=== PATIENT | male | born 1960 | race Caucasian/White ===

== ENCOUNTER 2023-08-29 08:52 | Outpatient (REF) | payer MEDICARE, BC, SELFPAY ==
--- NOTE | ~2023-08-29 | XR_ITS ---
EXAMINATION: XR LUMBOSACRAL SPINE WITH OBLIQUES CLINICAL INFORMATION: Lumbar spine pain COMPARISON: None available. TECHNIQUE: AP, both oblique, and lateral views of the lumbar spine. Lateral view of the lumbosacral junction. FINDINGS: The visualized lumbar vertebrae are intact with normal alignment. Bilateral 12th ribs are rudimentary. There is sacralization of L5. Intervertebral disc spaces are markedly decreased at L3-L4, L4-L5 and L5-S1 level. Alignment of lumbar spine is normal in lateral flexion and extension views. A 0.7 cm calcification is seen overlapping the left lower renal region. XR/XR lumbar spine 4V min IMPRESSION: 1. Advanced L3-L4 and L4-L5 degenerative lumbar disc disease, decreased L5-S1 intervertebral disc height due to L5 sacralization are seen. 2. No fracture or dislocation of lumbar spine is seen. 3. Stable normal alignment of lumbar spine in flexion and extension is demonstrated. 4. Possible left lower renal region calcifications suggestive of calculus.
== END 2023-08-29 08:53 | disposition home or self-care (01) ==
LOC: HO.HOSX 08:52
PROVIDERS: PCP Internal Medicine; Referring Provider Internal Medicine; Visit Provider Physician Assistant
DX: M54.50 Low back pain, unspecified (principal); M54.2 Cervicalgia; G89.29 Other chronic pain; M48.56XA Collapsed vertebra, not elsewhere classified, lumbar region, initial encounter for fracture; M43.17 Spondylolisthesis, lumbosacral region
CPT/HCPCS: 72110; 99202

== ENCOUNTER 2023-08-29 08:52 | Outpatient (AMB) | payer MEDICARE, BC, SELFPAY ==
--- NOTE | 2023-08-29 09:05 | HO.SPINEOV ---
Intake Intake Visit Reasons: neck and back pain Intake Note: Mr. Mercado is here today c/o neck and back pain. MRI done @ [facility]/brought disc. Onion Farmer Required: No Assessment & Plan Assessment & Plan (1) Back pain: Code(s): M54.9 - Dorsalgia, unspecified Plan Dear Rosi, Thank you for referring Mr Archer to our office today. He is a 63-year-old male who had a previous history of an L4-5 and L5-S1 lumbar surgery done back in the 1980s, who presents today for chronic low back pain and chronic neck pain. He describes the symptoms as spasm like. They are worse when he standing up and moving around. The low back pain is centralized in the middle the low back over the lumbosacral junction more to the left radiating down toward his buttock. The neck pain is in the lower cervical region and to some degree in between his shoulder blades. He does not have any radicular pain in the legs or the arms. He has no weakness to report. He does get some tingling and alter sensation on the left dorsum of his foot. Through the years he has tried multiple rounds of hearing healthcare practitioner, physical therapy, cortisone injections. He did have a caudal block done a number of years ago and that did seem to give him relief. He also reports an SI joint block done a number of years ago with possibly radiofrequency ablation and that did seem to help as well. At this point his quality of life is suffering significantly. He can not perform any of the usual daily tasks that he would like to do such as yd work etc.. He has taken Soma, baclofen, Advil, Tylenol, Excedrin. He can not exercise. This is causing his diabetes numbers to be elevated. He reports that an A1c of 10 was registered at 1 point but now it is down to 7.9. He does not take medication for his diabetes. PMH: As above, he is a diabetic but foot some reason or another he refuses to take medication to treat it. His A1c is 7.9 at the last check. It was as high as 10 at 1 point. He had been treating with diet and exercise but he can not exercise as much now so his blood sugars are elevated. History of gout, appendectomy, lumbar spine surgery twice, hypertension. The patient also has a history of myelomalacia diagnosed on a cervical spine workup many years ago. He has been asymptomatic. Social hx: He does not smoke Medications: Allopurinol for gout Allergies: Penicillin Physical exam: He is awake alert oriented no acute distress, he has good strength of bilateral upper lower extremities, normal reflexes. Gait is normal. He is slow with standing. Imaging review: Cervical MRI done at [facility] 2020 shows myelomalacia along spinal cord anteriorly more on the left along the C4-C7 range. There is some modest spinal cord compression here but nothing overt that would explain the myelomalacia. He has a lumbar MRI done in July 2023 at [facility] showing transitional vertebrae with very collapsed disc at L4-5, slight retrolisthesis of L5-S1. There is no evidence of central canal compression or foraminal stenosis. Impression: 63-year-old gentleman presents for evaluation of chronic neck pain chronic back pain as described above. He does have a severely collapsed disc at L4-5 on the most recent MRI study. Compared to the imaging done in 2018 it does not look significantly worsened. Standing x-rays done here today in the office show the does have slight scoliosis with collapse of the disc at L4-5 worse on the left. There is also disc degeneration at L5-S1. These things may explain his symptoms. On exam he describes the pain as being much lower down in his sacrococcygeal area. I told him I could not guarantee with 100% that the disc collapses where the pain is coming from but that it certainly looks degenerative enough that I think Dr. Dennis would offer him spinal fusion at L4-5, and possibly even L5-S1. I quoted in the success rates for spinal fusion as 60-70%. We also talked about the fact that we could consider another SI joint injection to clarify if this is involved with the symptoms but he deferred this. He does not want to go back down that road. With regard to his neck, he does have the myelomalacia and that seems to be an incidental finding as he has no symptoms and no physical exam findings compatible with myelomalacia. He has previously been assessed for this by who also told him there was nothing to do for it. I will get a new MRI just to see if any of the disc degeneration is changed in his neck that we could consider something surgical there. Thank you for allowing us to care for your patient. The total time spent with this visit with this patient was 65 minutes reviewing history, physical exam, cervical and lumbar imaging review, and implementation of treatment plan or further diagnostic testing Anthony Dennis MD,PhD [facility] Orders: Orders XR lumbar spine 4V min Today M54.9 - Dorsalgia, unspecified MR cervical spine wo con Today M54.2 - Cervicalgia Coding Level of Care Code New Pt Level 5 (88559) Diagnoses Back pain M54.9
== END 2023-08-29 10:35 | disposition home or self-care (01) ==
PROVIDERS: PCP Internal Medicine; Referring Provider Internal Medicine; Visit Provider Physician Assistant
DX: M54.9 Dorsalgia, unspecified (principal)
CPT/HCPCS: 99205

== ENCOUNTER → 2023-09-16 14:31 | Outpatient (BNVA) | payer MEDICARE, BC, SELFPAY | PROVIDERS: PCP Internal Medicine; Visit Provider Neurological Surgery | DX: M51.36 Other intervertebral disc degeneration, lumbar region (principal); M41.56 Other secondary scoliosis, lumbar region; M54.9 Dorsalgia, unspecified | CPT/HCPCS: 99212 ==

== ENCOUNTER → 2023-11-24 13:05 | Outpatient (BNV) | payer MEDICARE, BC, SELFPAY | PROVIDERS: Admitting Provider Neurological Surgery; PCP Internal Medicine; Visit Provider Internal Medicine | DX: R00.1 Bradycardia, unspecified (principal); R94.31 Abnormal electrocardiogram [ECG] [EKG] | CPT/HCPCS: 93010 ==

== ENCOUNTER 2023-12-08 06:07 | Inpatient (IN) | payer MEDICARE, BC, SELFPAY ==
--- NOTE | 2023-11-24 | ECG_ITS ---
Test Reason : HTN, DM, PREOP Blood Pressure : / mmHG Vent. Rate : 058 BPM Atrial Rate : 058 BPM P-R Int : 162 ms QRS Dur : 090 ms QT Int : 418 ms P-R-T Axes : 070 004 116 degrees QTc Int : 410 ms Sinus bradycardia Possible Inferior infarct , age undetermined T wave abnormality, consider lateral ischemia Abnormal ECG No previous ECGs available Referred By: Huong Guillory Electronically Signed By:ANTOINETTE TATE
[2023-11-24 12:12] VITALS: BP 156/87; PULSE 70; RESP 16; O2SAT 100; BMI 28.8
--- NOTE | 2023-11-24 12:36 | P.CONAN_ITS ---
Documented by User: Huong Guillory NP 12/05/23 11:06 HPI - Anesthesia Eval Consult details Narrative: 63yo M for L4-5 Oblique Lumbar Interbody Fusion, 12/08/23 ? Flu ~ 2 weeks ago. Resolved. No CP/SOB with walking within house and stairx. Seen by [facility] 02/2023 for abnormal EKG. Had false positive stress - sent for cath and echo which were normal Asc aorta dilation @ 4.3cm by echo 02/2023 DM. FBS ~ 115 GERD. controlled with prn ppi. Taking ~ 2-3 x weekly PMFSH Active Problems Active Problems: All Active Problems (Updated 11/24/23 @ 12:27 by Marilu Watts RN) Lumbar degenerative disc disease (Acute) Scoliosis of lumbar region due to degenerative disease of spine in adult (Acute) Back pain (Acute) Past Medical History Medical History Anxiety Numbness and tingling of both feet Disc disease with myelopathy, lumbar Bilateral lower extremity pain Ascending aorta dilation Achilles tendinitis GERD (gastroesophageal reflux disease) IFG (impaired fasting glucose) Gout Elevated cholesterol HTN (hypertension) Diabetes Neck pain Arthritis Muscle spasm Migraines Family History Family history of problems with anesthesia: No Surgical History Surgical History Hx of appendectomy History of back surgery History of Problems with Anesthesia: No Social History Social History Are you a primary physician locums urgent care to a significant other at home: No Do you presently have visiting nurse or other home services: No Patient Tobacco Use Status: Never used Tobacco Use of substances other than those prescribed or required for medical reasons: No Have you been hit, kicked, punched, or otherwise hurt by someone within the past year? If so, by whom?: No Are you DNR?: No Advance Directives: No Advance Directives Information Provided: Yes Advance Directives on File: No Recently lost weight without trying: No Nutrition Risks: No Nutritional Risk Poor oral hygiene: No Meds Allergies Allergy/AdvReac Type Severity Reaction Status Date / Time Penicillins Allergy Unknown Swelling Verified 12/08/23 06:11 Home Medications Medication Instructions Recorded Confirmed Last Taken Type allopurinol 300 mg tablet 300 mg PO DAILY 11/21/23 12/08/23 Unknown History diazepam 5 mg tablet 5 mg PO DAILY PRN Anxiety 11/21/23 12/08/23 Unknown History empagliflozin 10 mg tablet 10 mg PO DAILY 11/21/23 12/08/23 12/03/23 History (Jardiance) acetaminophen 325 mg tablet 650 mg PO DAILY PRN Pain 11/24/23 12/08/23 Unknown History colchicine 0.6 mg tablet 0.6 mg PO DAILY PRN Pain 11/24/23 12/08/23 Unknown History ibuprofen 200 mg tablet (Advil) 400 mg PO Q8H PRN Pain 11/24/23 12/08/23 12/01/23 History omeprazole 20 mg capsule,delayed 20 mg PO QAM PRN Gastric Reflux 11/24/23 12/08/23 12/08/23 History release Exam Height,Weight and Vital Signs: Height 5 ft 10.5 in Weight 92.2 kg Last Vital Signs Pulse 70 11/24/23 12:12 Resp 16 11/24/23 12:12 BP 156/87 H 11/24/23 12:12 Pulse Ox 100 11/24/23 12:12 O2 Del Method Room Air 11/24/23 12:12 Pertinent Lab Results Pertinent Lab Results: Lab Results 11/24/23 11/24/23 Range/Units 13:07 13:13 WBC 4.2 L (4.8-10.8) X10*3/uL RBC 5.81 H (4.60-5.80) X10*6/uL Hgb 16.9 (14.0-18.0) g/dl Hct 51.2 (42.0-52.0) % MCV 88.1 (80.0-98.0) fL MCH 29.1 (27.0-33.0) pg MCHC 33.0 (31.0-36.0) g/dl RDW 12.3 (11.0-16.0) % Plt Count 173 (160-400) X10*3/uL MPV 10.0 (9.4-12.4) fL Absolute Nucleated RBC 0.000 (0.0-0.012) X10*3/uL Nucleated RBC % (auto) 0.0 (0.0-0.2) /100WBC Sodium 138 (135-145) mmol/L Potassium 4.5 (3.3-5.1) mmol/L Chloride 103 (96-108) mmol/L Carbon Dioxide 28 (22-29) mmol/L Anion Gap 12 (12-20) BUN 25 H (9-16) mg/dL Creatinine 1.10 (0.5-1.4) mg/dL Estim Creat Clear Calc 77.4 Estimated GFR > 60 Random Glucose 119 H (60-115) mg/dL Estimat Average Glucose 146 mg/dL Hemoglobin A1c % 6.7 H (<6.0) % Calcium 10.2 (8.4-10.2) mg/dL Blood Type O Positive Antibody Screen NEGATIVE Narrative Narrative: EKG 11/2023 Vent. Rate : 058 BPM Atrial Rate : 058 BPM P-R Int : 162 ms QRS Dur : 090 ms QT Int : 418 ms P-R-T Axes : 070 004 116 degrees QTc Int : 410 ms Sinus bradycardia Possible Inferior infarct , age undetermined T wave abnormality, consider lateral ischemia Abnormal ECG No previous ECGs available (No change from previous at outside facility) ECHO 02/2023 1. Nml LV chamber size. Mild conc LVH. Nml LV systolic function. Nml regional wall motion. LVEF 55-60% 2. RV is nml in size and systolic function 3. No hemodynamically signif valve dysfunction 4. Asc aorta dilation @ 4.3cm Airway Mallampati Class: II TM Dist: >3cm Neck ROM: Limited Loose/Missing/Broken Teeth: Yes (Molars pulled. #8 crowned) Heart: RRR Lungs: CTAB Assessment and Plan Assessment Anesthesia Assessment: Anesthesia Plan Discussed and PAT Visit Final Anesthetic Review Family History of Problems with Anesthesia: No History of Problems with Anesthesia: No Documented by User: Ton Cook MD 12/08/23 06:55 [facility] Past Medical History Medical History Anxiety Numbness and tingling of both feet Disc disease with myelopathy, lumbar Bilateral lower extremity pain Ascending aorta dilation Achilles tendinitis GERD (gastroesophageal reflux disease) IFG (impaired fasting glucose) Gout Elevated cholesterol HTN (hypertension) Diabetes Neck pain Arthritis Muscle spasm Migraines Surgical History Surgical History Hx of appendectomy History of back surgery Social History Social History Are you a primary physician locums urgent care to a significant other at home: No Do you presently have visiting nurse or other home services: No Patient Tobacco Use Status: Never used Tobacco Use of substances other than those prescribed or required for medical reasons: No Have you been hit, kicked, punched, or otherwise hurt by someone within the past year? If so, by whom?: No Are you DNR?: No Advance Directives: No Advance Directives Information Provided: Yes Advance Directives on File: No Recently lost weight without trying: No Nutrition Risks: No Nutritional Risk Poor oral hygiene: No Meds Allergies Allergy/AdvReac Type Severity Reaction Status Date / Time Penicillins Allergy Unknown Swelling Verified 12/08/23 06:11 Home Medications Medication Instructions Recorded Confirmed Last Taken Type allopurinol 300 mg tablet 300 mg PO DAILY 11/21/23 12/08/23 Unknown History diazepam 5 mg tablet 5 mg PO DAILY PRN Anxiety 11/21/23 12/08/23 Unknown History empagliflozin 10 mg tablet 10 mg PO DAILY 11/21/23 12/08/23 12/03/23 History (Jardiance) acetaminophen 325 mg tablet 650 mg PO DAILY PRN Pain 11/24/23 12/08/23 Unknown History colchicine 0.6 mg tablet 0.6 mg PO DAILY PRN Pain 11/24/23 12/08/23 Unknown History ibuprofen 200 mg tablet (Advil) 400 mg PO Q8H PRN Pain 11/24/23 12/08/23 12/01/23 History omeprazole 20 mg capsule,delayed 20 mg PO QAM PRN Gastric Reflux 11/24/23 12/08/23 12/08/23 History release Exam Airway Mallampati Class: II Loose/Missing/Broken Teeth: No Assessment and Plan Final Anesthetic Review NPO: Yes ASA Class: III Final Preanesthetic Review: No Changes in Pt Med Stat, Meds/Allgs Chart Reviewed, Consent Obtained/Reviewed and Anes Risks/Benef Reviewed Patient Risk: Intermediate Procedure Risk: Intermediate Assessment/Block/Sedation in SS: Assess/Block/Sedation-SS Anesthetic Plan Anesthetic Plan: GA
[2023-11-24 13:59] LABS: Hematocrit 51.2 % (42.0-52.0); Hemoglobin 16.9 g/dl (14.0-18.0); Mean Corpuscular Hemoglobin 29.1 pg (27.0-33.0); Mean Corpuscular Volume 88.1 fL (80.0-98.0); Platelet Count 173 X10*3/uL (160-400); Red Blood Count 5.81 X10*6/uL (4.60-5.80); Red Cell Distribution Width 12.3 % (11.0-16.0); White Blood Count 4.2 X10*3/uL (4.8-10.8)
[2023-11-24 14:08] LABS: Estimated Average Glucose 146 mg/dL; Hemoglobin A1c % 6.7 % (<6.0)
[2023-11-24 14:28] LABS: Anion Gap 12 (12-20); Blood Urea Nitrogen 25 mg/dL (9-16); Calcium 10.2 mg/dL (8.4-10.2); Carbon Dioxide 28 mmol/L (22-29); Chloride 103 mmol/L (96-108); Creatinine Clr Calc Pharmacy 77.4; Estimated Glomerular Filt Rate > 60; Glucose Random 119 mg/dL (60-115); Potassium 4.5 mmol/L (3.3-5.1); Sodium 138 mmol/L (135-145)
[2023-12-08] VITALS (15 sets, daily range): BP systolic 134–167; BP diastolic 57–88; PULSE 60–71; RESP 12–24; TEMP 36.1–36.8; O2SAT 97–99; BMI 28.5
--- NOTE | ~2023-12-08 | FL_ITS ---
EXAMINATION: XR FLUOROSCOPY WITH IMAGES CLINICAL INFORMATION: OLIF. COMPARISON: Radiographs dated 08/29/2023. TECHNIQUE: Fluoroscopy Supervised By: Dr. Tang Dennis. Fluoroscopy Time: 1.1. Cumulative Dose: 80.8 mGy. DAP: 14.56025 Gycm2. Images: 4. 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 The submitted images show a posterior fixator rods, fixator screws and disc spacer applied to the L3-L4 level. Again, there is posterior disc space narrowing at L4-L5, and a rudimentary L5-S1 disc space is seen. FL/FL guidance in OR IMPRESSION: Transitional lumbar anatomy is noted. Intraoperative fluoroscopic guidance is provided during L3-L4 posterior discectomy and fusion. Please see the patient's Operative Report for full procedural details.
--- OUTSIDE RECORDS SUMMARY | 2023-12-08 06:10 | XMS_ITS | Continuity of Care Document ---
Author Name Unknown Organization [facility] Address [address] [place] [id number]- Care Team Providers Care Attendance Clerk Name Role Phone Ang Dalal DO Primary Care Physician [id number] Date(s[facility]/06/[facility] - 08/[facility] [address] [place] [id number]- Attending Physician: Gerber Chinchilla MD Admitting Physician: Gerber Chinchilla MD Referring Physician: Ang Dalal DO Allergies, Adverse Reactions, Alerts Substance Reaction Severity Status penicillin Active penicillins Active Medications Advil 200 mg oral tablet 1 tablet = 200 mg, By Mouth, Every 6 hours, 0 Refills, Maintenance, 07/16/22 11:37:00 EDT, Partial fill upon patient request if the prescription is for a schedule II opioid drug. Start Date: 07/16/22 Status: Ordered allopurinol 100 mg oral tablet TK SS OF A T PO QD . GET BLOOD WORK DONE 1 MONTH AFTER STARTING MEDICATION Start Date: 08/21/16 Status: Ordered Carisoprodol By Mouth, 4 times a day, 0 Refills, Maintenance, 07/16/22 11:37:00 EDT, Partial fill upon patient request if the prescription is for a schedule II opioid drug. Start Date: 07/16/22 Status: Ordered colchicine 0.6 mg oral tablet 0.6 mg, By Mouth, 2 times a day, # 60 tablet, Refills 0, Tot. Refills 0, Maintenance, 12/26/17 15:34:28, Route to Pharmacy Electronically, [id number], [facility] [id number] Start Date: 12/26/17 Stop Date: 01/23/18 Status: Ordered gabapentin 300 mg oral capsule 300 mg, By Mouth, Daily at bedtime, # 30 capsule, Refills 3, Tot. Refills 3, Maintenance, 12/26/17 17:11:24, Route to Pharmacy Electronically, [id number], [facility] [id number] Start Date: 12/26/17 Stop Date: 04/25/18 Status: Ordered pantoprazole 20 mg oral delayed release tablet = 20 mg, By Mouth, Daily, # 14 tablet, 0 Refills, Maintenance, 12/26/17 15:34:48, EC Tablet Start Date: 12/26/17 Stop Date: 01/09/18 Status: Ordered Tylenol 325 mg oral tablet 325 mg, 1, tablet, By Mouth, Every 4 hours, PRN, # 60 tablet, Refills 0, Maintenance, for pain, 07/16/22 11:37:00 EDT, Partial fill upon patient request if the prescription is for a schedule II opioid drug. Start Date: 07/16/22 Status: Ordered Valium 2 mg oral tablet 2 mg, 1, tablet, By Mouth, Every 8 hours, Refills 0, Maintenance, 07/16/22 11:36:00 EDT, Partial fill upon patient request if the prescription is for a schedule II opioid drug. Start Date: 07/16/22 Status: Ordered Problem List Condition Confirmation Course Effective Dates Status Health St atus Informant Cervical spondylosis 1 Confirmed Active History of arthritis Confirmed Active History of surgery 2 Confirmed Active Lumbar post-laminectomy syndrome Confirmed Active Neck pain Confirmed Active Cervicalgia Confirmed Active Shoulder pain Confirmed Active Right-sided headache Confirmed Active 1Possible myelomalacia C4-6 levels by report 2Appendectomy, lumbar discectomies Social History Social History Type Response Smoking Status Never smoker entered on: 12/23/17 Sex Patient Care team information Personnel Name: Ang Dalal DO Address: Address: [address] [place] [address] [address] [place], [place] [address]
--- OUTSIDE RECORDS SUMMARY | 2023-12-08 06:10 | XMS_ITS | Continuity of Care Document ---
Author Name Unknown Organization [facility] Address [address] [place] [address]- Care Team Providers Care Horse Race Starter Name Role Phone Ang Dalal DO Primary Care Physician [facility] [id number] Date(s): 07/10/21 - 01/04/22 [facility] [address] [place] [id number]- Attending Physician: Gerber Chinchilla MD Admitting Physician: Gerber Chinchilla MD Allergies, Adverse Reactions, Alerts Substance Reaction Severity Status penicillins Active Medications allopurinol 100 mg oral tablet TK SS OF A T PO QD . GET BLOOD WORK DONE 1 MONTH AFTER STARTING MEDICATION Start Date: 08/21/16 Status: Ordered Problem List Condition Effective Dates Status Health Status Inform ant Cervical spondylosis(Confirmed) 1 Active History of arthritis(Confirmed) Active History of surgery(Confirmed) 2 Active Lumbar post-laminectomy syndrome(Confirmed) Active Neck pain(Confirmed) Active Cervicalgia(Confirmed) Active Shoulder pain(Confirmed) Active Right-sided headache(Confirmed) Active 1Possible myelomalacia C4-6 levels by report 2Appendectomy, lumbar discectomies Social History Social History Type Response Smoking Status Never smoker entered on: 05/21/16 Sex
--- OUTSIDE RECORDS SUMMARY | 2023-12-08 06:10 | XMS_ITS | Continuity of Care Document ---
Author Name Unknown Organization [facility] ter Address [address] [place] [id number]- Care Team Providers Care Superintendent Board Mill Name Role Phone Ang Dalal DO Primary Care Physician Encounter [facility] Date(s): 03/22/21 - 03/22/[address] [address]- Discharge Disposition: A-D/C Home Attending Physician: Ramez Hackett MD Admitting Physician: Ramez Hackett MD Referring Physician: Not on Staff, Referring MD Allergies, Adverse Reactions, Alerts Substance Reaction Severity Status penicillin Active Medications colchicine 0.6 mg oral tablet 0.6 mg, By Mouth, 2 times a day, # 60 tablet, Refills 0, Tot. Refills 0, Maintenance, 12/26/17 15:34:28, Route to Pharmacy Electronically, [id number], [facility] [id number] Start Date: 12/26/17 Stop Date: 01/23/18 Status: Ordered gabapentin 300 mg oral capsule 300 mg, By Mouth, Daily at bedtime, # 30 capsule, Refills 3, Tot. Refills 3, Maintenance, 12/26/17 17:11:24, Route to Pharmacy Electronically, [id number], [facility] [id number] Start Date: 12/26/17 Stop Date: 04/25/18 Status: Ordered MorPHINE Inj 2 mg, Injection, IV Push Slowly, Once, STAT, 03/22/21 20:07:00 EDT, Stop date 03/22/21 20:07:00 EDT Start Date: 03/22/21 Stop Date: 03/22/21 Status: Completed pantoprazole 20 mg oral delayed release tablet = 20 mg, By Mouth, Daily, # 14 tablet, 0 Refills, Maintenance, 12/26/17 15:34:48, EC Tablet Start Date: 12/26/17 Stop Date: 01/09/18 Status: Ordered Vital Signs Most recent to oldest [Reference Range]: 1 2 3 Weight 97 kg (03/22/21 5:46 PM) 97 kg (03/22/21 5:45 PM) Oxygen Saturation [94-100 %] 100 % (03/22/21 10:22 PM) 100 % (03/22/21 5:45 PM) Pulse Rate [55-90 bpm] 65 bpm (03/22/21 10:22 PM) 81 bpm (03/22/21 5:45 PM) Blood Pressure [90-138/55-84 mm Hg] 150/102mm Hg *H* (03/22/21 10:22 PM) 160/83mm Hg *H* (03/22/21 5:45 PM) Respiratory Rate [16-30 br/min] 16 br/min (03/22/21 10:22 PM) 16 br/min (03/22/21 8:26 PM) 18 br/min (03/22/21 5:45 PM) Temperature [96.8-100.4 DegF] 97.8 DegF (03/22/21 5:45 PM) Mode of Delivery (Oxygen) Room air (03/22/21 10:22 PM) Room air (03/22/21 5:45 PM) Blood pressure sites Arm, right (03/22/21 5:45 PM) Temperature Route Oral (03/22/21 5:45 PM) Dry Weight 97 kg (03/22/21 5:46 PM) 97 kg (03/22/21 5:45 PM) Social History Social History Type Response Smoking Status Never smoker entered on: 12/23/17 Sex
--- OUTSIDE RECORDS SUMMARY | 2023-12-08 06:10 | XMS_ITS | Continuity of Care Document ---
Author Name Unknown Organization [facility] Address [address] [place] [address]- Care Team Providers Care Sider Mechanic Name Role Phone Ang Dalal DO Primary Care Physician [place] [facility] [place] 05/07/20 [facility] [address] [place] [address] [facility] Attending Physician: Gerber Chinchilla MD Admitting Physician: [...]
--- OUTSIDE RECORDS SUMMARY | 2023-12-08 06:10 | XMS_ITS | Continuity of Care Document ---
Author Name Unknown Organization [facility] Address [address] [place] [id number]- Care Team Providers Care Diagnostics Sales Developer Name Role Phone Ang Dalal DO Primary Care Physician Encounter [facility] Date(s): 12/29/19 - 02/11/20 [facility] [address] [place] [id number]- [facility] Attending Physician: Not on Staff, Attending MD Allergies, Adverse Reactions, Alerts Substance Reaction [...]
--- OUTSIDE RECORDS SUMMARY | 2023-12-08 06:10 | XMS_ITS | Continuity of Care Document ---
Author Name Unknown Organization [facility] ter Address [address] [place] [id number]- Care Team Providers Care Oil Expert Name Role Phone Ang Dalal DO Primary Care Physician Encounter [facility] [place] Date(s): 03/05/23 - 03/05/[address] [address]- Discharge Disposition: A-D/C Home Attending Physician: Lopez Crowell MD Admitting Physician: Lopez Crowell MD Referring Physician: Lopez Crowell MD Allergies, Adverse Reactions, Alerts Substance Reaction Severity Status penicillin Active Medications allopurinol 300 mg oral tablet 300 mg, 1, tablet, By Mouth, Daily, # 30 tablet, Refills 0, Maintenance, 03/05/23 8:06:00 EDT, Partial fill upon patient request if the prescription is for a schedule II opioid drug. Start Date: 03/05/23 Status: Ordered Problem List Condition Confirmation Course Effective Dates Status Health St atus Informant Cervical spondylosis 1 Confirmed Active History of arthritis Confirmed Active History of surgery 2 Confirmed Active Lumbar post-laminectomy syndrome Confirmed Active Neck pain Confirmed Active Cervicalgia Confirmed Active Shoulder pain Confirmed Active Right-sided headache Confirmed Active 1Possible myelomalacia C4-6 levels by report 2Appendectomy, lumbar discectomies Vital Signs Most recent to oldest [Reference Range]: 1 2 3 Height 178 cm (03/05/23 7:40 AM) Weight 93.8 kg (03/05/23 7:40 AM) Oxygen Saturation [94-100 %] 98 % (03/05/23 2:30 PM) 97 % (03/05/23 2:00 PM) 96 % (03/05/23 1:30 PM) Pulse Rate [55-90 bpm] 63 bpm (03/05/23 7:40 AM) Body Mass Index [18.5-24.99 kg/m2] 29.6 kg/m2 *H* (03/05/23 7:40 AM) Blood Pressure [90-138/55-84 mm Hg] 124/77mm Hg (03/05/23 2:30 PM) 128/75mm Hg (03/05/23 2:00 PM) 129/74mm Hg (03/05/23 1:30 PM) Respiratory Rate [16-30 br/min] 10 br/min *L* (03/05/23 2:00 PM) 11 br/min *L* (03/05/23 1:30 PM) 14 br/min *L* (03/05/23 1:00 PM) Temperature [96.8-100.4 DegF] 97.2 DegF (03/05/23 7:40 AM) Mode of Delivery (Oxygen) Room air (03/05/23 2:30 PM) Room air (03/05/23 2:00 PM) Room air (03/05/23 1:30 PM) Blood pressure sites Arm, left (03/05/23 2:30 PM) Arm, left (03/05/23 2:00 PM) Arm, left (03/05/23 1:30 PM) Temperature Route Temporal (03/05/23 7:40 AM) Dry Weight 93.8 kg (03/05/23 7:40 AM) Weight Obtained Via Standing scale (03/05/23 7:40 AM) Dry Weight Obtained Via Standing scale (03/05/23 7:40 AM) Social History Social History Type Response Smoking Status Never smoker entered on: 12/23/17 Sex Cardiac catheterization study * Event Display: Cardiac Liaison Planner Report Authored Date: Cardiac Diagnostic Report Demographics Patient Name CHIO PATINO Gender Male [employer] Room Number [id number] Height 70.08 inches Date of 1960 Weight 206.79 pounds Age 63 year(s) BSA 2.12 m2 Accession Number [id number] BMI 29.6 kg/m2 Referring Physician Lopez Crowell MD Date of Study 03/05/2023 Performing Physician Lopez Crowell MD Fellow Interventional Physician Procedure Procedure Type Diagnostic procedure:Coronary Angiography with [facility] Diagnostic Catheterization Status:Elective Indications Indications: Abnormal stress treadmill study. Clinical History Clinical Evaluation Leading to Procedure Diagnosed on 03/05/2023 00:00. - The patient's CAD presentation was assessed as: Stable angina. - The patient's anginal syndrome during the past two weeks was assessed as: Class II according to the [place] Cardiovascular Society Classification System (CCS). Excercise Stress study showed Positive results with Intermediate ischemic risk. ACC Risk Factors The patient risk factors include:obesity and orally-treated diabetes mellitus. Additional Clinical History:63-year-old male with a past medical history of type 2 diabetes, symptoms of exertional fatigue, exercise treadmill stress test with EKG changes suggestive of ischemia. He was referred for coronary angiography Procedure Data Procedure Date Date: 03/05/2023Start: 10:52End: 11:21 The procedure was explained in detail to the patient. Risks, complications and alternative treatments were reviewed. Written consent was obtained. Entry Locations - Retrograde Percutaneous access was performed through the Right Radial artery. A 6 Fr sheath was inserted. Hemostasis was successfully obtained using TR Band. Procedure Medications - Versed (Midazolam) I.V. 1 mg. - Fentanyl I.V. 50 mcg. - Lidocaine 2% S.C. Right Wrist 5 ml. - Nitroglycerin I.A. 200 mcg. - Heparin I.V. 3000 units. Sedation: My in-service moderate sedation time was from 1105 to 1119 . Refer to the procedural log for detailed chronological information. Contrast Material - Omnipaque 30 ml Diagnostic Catheters - [id number] RADIAL TIG 4.0 RADIFOCUS OPTITORQUE CATHETERwas used for: Left heart catheterization. - [id number] RADIAL TIG 4.0 RADIFOCUS OPTITORQUE CATHETERwas used for: Left coronary angiography. Fluoroscopy Time: Diagnostic: 1:18 minutes. Total: 1:18 minutes. Fluoroscopy Dose: Diagnostic: 48 mGy. Total: 48 mGy. Dose Area Product:Diagnostic: 3000 mGy/cm2. Total: 3000 mGy/cm2. Dose Area Product:Diagnostic: 300 ??Gy/m2. Total: 300 ??Gy/m2. Angiographic Findings Cardiac Arteries and Lesion Findings LMCA: Normal. LAD: Normal. LCx: Normal. RCA: Normal. Hemodynamics Condition: Rest O2 Consumption: Estimated: 237.79Heart Rate: 58 bpm Pressures (mmHg) +-----+---------+ !Site !Pressure ! +-----+---------+ !LV !132/5 ,5 ! +-----+---------+ Shunts Oxygen Values O2 Capacity 205.36 O2 Consumption 237.79 Interventional Procedure Conclusions Diagnostic Summary No obstructive coronary artery disease (>50% stenosis) Normal left ventricular end-diastolic pressure No significant gradient identified across aortic valve on pullback Right radial artery hemostatic with a compressive device Diagnostic Recommendations No significant coronary artery disease was identified suggesting the stress test was a false positive. Given normal echocardiogram and coronary angiography, recommend investigation for noncardiac causes of exertional fatigue ACC Diagnostic Recommendations: Medical therapy and/or counseling. Complications:None. Signatures * Event Display: Cardiac Liaison Planner Report Authored Date: History and physical note * Event Display: History and Physical Hospital Authored Date: EKG study * Event Display: ECG 12-Lead Authored Date: Please click on pdf link to open report * Event Display: ECG 12-Lead Authored Date: Ventricular Rate: 61 BPM Atrial Rate: 61 BPM P-R Interval: 156 ms QRS Duration: 90 ms Q-T Interval: 402 ms QTC Calculation(Bazett): 404 ms P [place]: 69 degrees R [place]: -2 degrees T [place]: 57 degrees Normal sinus rhythm Inferior infarct , age undetermined Abnormal ECG No previous ECGs available Confirmed by ELSY DAVILA MD ([id number]) on 03/05/2023 10:33:13 AM Leonard: ELSY DAVILA MD Note * Dante Pereira RN: PERFORM Event Display: Discharge/Transfer Note Hospital Authored Date: [id number] Nursing Discharge Note Entered On: 03/05/2023 15:44 EDT Performed On: 03/05/2023 15:43 EDT by Dante Pereira RN Nursing Discharge Note 2 Discharge Time : 03/05/2023 15:10 EDT Discharge Level of Care at Discharge : Home/Alf/Foster Care Patient Left Unit Via : Wheelchair Patient Accompanied Off Unit with : Responsible adult DC Instructions Provided & Signed by Pt : Yes Patient Understands D/C Instructions : Yes Verbalized Understanding of D/C Plan By : Patient Patient Instructions Discharge Signed : Yes Did Pt have Specialty Bed or Wound Vac : No Dante Pereira RN - 03/05/2023 15:43 EDT * Dante Pereira RN: MODIFY, PERFORM Event Display: Patient Education/Instruction Authored Date: [id number] Inpatient Adult Discharge Instructions [place] [id number] Name: SUKUMAR BARROSO : 1960 Visit: 03/05/2023 07:30:00 Current Date: 03/05/2023 12:00 Account: [id number] Inpatient Adult Discharge Instructions We would like to thank you for allowing us to assist you with your healthcare needs. The following includes patient education materials and information regarding your injury/illness. Our entire staffstrives to provide an excellent experience for our patients and their families. PLEASE ENSURE YOU FOLLOW-UP PER THE INSTRUCTIONS BELOW! ?? YOUR OPINION IS IMPORTANT TO US! Please complete the survey you may receive by mail or email. Your feedback will be used to make improvements to the healthcare experiences of our patients and their families. Surveys are administered by [employer] ?? If further treatment with your primary care physician or another doctor is recommended, it is important for you to keep the appointment. Call your primary care physician or return to the Emergency Department immediately if your condition worsens, fails to improve, or new symptoms develop. If you need to find a doctor, you can call [facility] tab ticketbroker Link for a referral at [phone] or toll free at [phone] or log in to [email or web address].. ?? You can view and manage your care through the patient portal or by using a health care patricia of your choosing. [employer] is a website that allows you to securely view your medical information including your hospital discharge summary, office visit summaries, medications and follow-up visits. You can also request appointments, renew medications, and request access to your medical information using a health care patricia of your choosing, or just ask a question. You can enroll at [email or web address] or register during your next office visit. You have been discharged from [facility], Patient Care Unit: CARE. If you have any questions regarding these instructions after you leave, please call us and we will be happy to assist you. [facility] Your Care Team Attending Physician Lopez Crowell MD Discharging Providers Lopez Crowell MD Reason for Your Visit ABN CARD STRESS TEST LHC/?PCI HV2 ARR 730AM Tests Performed Below is a partial list of the tests performed during your hospitalization. You may have had other tests and procedures not included in this list. Please discuss all test results with your provider. Type and Screen Primary Care Provider Ang Dalal DO Advance Directive . Discharge Vitals Temperature: 97.2 DegF Height: 178 cm Pulse Rate: 63 bpm Weight: 93.8 kg Respiratory Rate:??12 br/min??Low Body Mass Index:??29.6 kg/m2??High Systolic Blood Pressure: 135 mm Hg Body surface area: 2.15 Diastolic Blood Pressure:??86 mm Hg??High ?? Oxygen Saturation: 96 % ?? Studies Pending All tests and labs ordered during this hospital stay have been completed unless listed below. Please discuss all pending results with your provider listed above in these instructions. ?? No incomplete studies found What to do next Instructions From Your Doctor Discharge Orders You Need to Schedule the Following Appointments Follow Up with??Ang Dalal DO When??Within 1 week: call to discuss follow up visit Where: [address] [place] [address] [address] [place] [address]- Discharge Medications SUKUMAR BARROSO :1960 Visit Date:03/05/2023 Medications: Please continue your medications until treatment is completed or stopped by your provider. Medications not listed below should be discontinued. Discuss any questions related to medications with your provider. What How Much When Instructions Next Dose Unchanged Allopurinol (allopurinol 300 mg oral tablet) 1 tab(s) Oral Daily Continue taking as prescribed Test Results Below is a partial list of the most recent Laboratory test results done prior to this discharge. You may have had other tests and procedures not included in this list. Please discuss all test resultswith your provider. Type and Screen (03/05/2023) ???Blood Type - O Positive???Antibody Screen - Negative Allergies (NKA means No Known Allergies) penicillin Problems Active Problems??(8) Cervical spondylosis?? Cervicalgia?? History of arthritis?? History of surgery?? Lumbar post-laminectomy syndrome?? Neck pain?? Right-sided headache?? Shoulder pain?? Education Materials Below is the list of Educational Leaflet Providered with your Discharge Instructions. Surgery Radial Cath Approach Discharge Instructions?? Procedural Sedation?? Bleeding or Hematoma After Cardiac Catheterization?? Valuables and Belongings I fully understand and agree that [facility] accepts no responsibility for all my personal property including clothing, toilet articles, radios, jewelry, dentures, hearing aids, rings, money, or any other property that is in my possession or is brought to me after admission. I understand certain valuables may be placed in a hospital safe for a short period of time. I understand that the hospital is not liable for loss or damage due to accident, fire, or other natural occurrence while said property is in the safe. I accept full responsibility for any personal property that I keep with me, and will not hold the hospital responsible in case of loss or disappearance. I acknowledge that i have been encouraged to send valuables and belongings home. ?? Review of Valuable and Belonging List: With patient Date for Pt to Sign Valuables/Belongings: 03/05/23 08:49:00 ?? Other Discharge Information ? Pulmonary Rehab Status?? Pulmonary Rehab Discharge Status?? Respiratory Rate:??12 br/min??Low ? Common Emergency Awareness Tips IS IT A STROKE? Act FAST and Check for these signs: FACE Does the face look uneven? ARM Does one arm drift down? SPEECH Does their speech sound strange? TIME Call at any sign of stroke ?? Heart Attack Signs Chest discomfort: Most heart attacks involve discomfort in the center of the chest and lasts more than a few minutes, or goes away and comes back. It can feel like uncomfortable pressure, squeezing, fullness or pain. Discomfort in upper body: Symptoms can include pain or discomfort in one or both arms, back, neck, jaw or stomach. Shortness of breath: With or without discomfort. Other signs: Breaking out in a cold sweat, nausea, or lightheaded. Remember, MINUTES DO MATTER. If you experience any of these heart attack warning signs, call to get immediate medical attention! ?? Smoking can increase your chances of developing chronic health problems and can cause harmful effects to other family members in your house. If you smoke, you are strongly encouraged to quit. Please call [facility] tab ticketbroker Link at [phone] or [phone] ([phone]) or log in to [email or web address] for referrals to smoking cessation programs. ?? 582 Suicide & Crisis Lifeline is available 02/06 if you or someone you know needs to find a reason to keep living. By calling 783 you'll be connected to a skilled, trained counselor at a crisis center in your area. INPATIENT DISCHARGE INSTRUCTIONS SIGNATURE PAGE SUKUMAR BARROSO Location:[facility] Registration Date and Time:03/05/2023 07:30 EDT Primary Care Physician: Ang Dalal DO, I SUKUMAR BARROSO, have received the above patient education materials/instructions and have verbalizedunderstanding. If ambulance or transport services are being used I further acknowledge being given a choice of service. ?? If you need to contact me, please call me at this number: . Patient/Emergency Room Orderly Name: Patient/Emergency Room Orderly Signature: Relationship to Patient: Witness Name/Signature: Date: * Dante Pereira RN: PERFORM Event Display: Patient Education Leaflets Authored Date: [id number] Surgery Radial Cath Approach Discharge Instructions ?? 278 Radial Cath Approach Discharge Instructions ?? Activity Take it easy the rest of the day. Limit your activity on the affected side.?? Act as if your arm is broken for 24 hours. No lifting with affected arm for 24 hours. No pushing or pulling with the affected arm. Do not reach or lift with the affected arm. Do not place excessive pressure on the wrist. ?? Precautions Due to intravenous sedation: It is recommended that someone stay with you for the first night after your procedure. Do not drive or operate hazardous machinery for 24 hours. Do not make legal decisions for 24 hours. Avoid alcohol for 24 hours. Unless directed otherwise, keep yourself hydrated. ?? Dressing/Incision Care You may remove the dressing 24 hours after your procedure. Replace with band aid for an additional 24 hours. You may shower and cleanse the site with soap & water then pat dry. Avoid submersion of site in water x 5 days. Cover the with a clean band aid daily until site is healed. If the band aid becomes soiled, replacewith a clean new one. Do not apply any ointments, lotions, gels or powders to the puncture site. ?? When to contact your doctor If any of the following signs of infection occur: Fever greater than 100 degrees F Increased pain Drainage, redness or warmth at puncture site Tingling of the fingers and hand that last longer than 3 days Slight bubble of blood or bleeding from site: apply manual pressure and notify your doctor ?? Emergency situations: Bleeding from the site that will not stop: apply manual pressure and notify your doctor Profuse bleeding streaming from the puncture site: Apply manual pressure and notify your doctor immediately If your hand becomes bluish, cold to the touch, or painful, notify your doctor immediately or go toEmergency Department. For these emergent situations: If unable to contact your physician, call 911. ?? * Dante Pereira RN: PERFORM Event Display: Patient Education Leaflets Authored Date: [id number] Procedural Sedation ?? 41997 Procedural Sedation Procedural sedation is medicine to ease discomfort, pain, and anxiety during a procedure. The medicine is often given through an IV (intravenous) line in your arm or hand. In some cases, the medicinemay be taken by mouth or inhaled. While you are under sedation, you will likely be awake. But you may not remember anything afterward. Why procedural sedation is used Sedation is used for many types of procedures. The goal is to reduce pain, anxiety, and stressful memories of a procedure. It can help your healthcare provider treat you. For example, having a brokenbone fixed may be easier if you feel relaxed. This type of sedation is used only for short, basic procedures. It's not used for complex surgery. Some procedures that use this type of sedation include: ??? Dental surgery ??? Breast biopsy, to take a sample of breast tissue ??? Endoscopy, to look at gastrointestinal problems ??? Bronchoscopy, tocheck for lung problems ??? Bone or joint realignment, to fix a broken bone or dislocated joint ???Minor foot or skin surgery ??? Electrical cardioversion, to restore a normal heart rhythm ??? Lumbar puncture, to assess neurological disease ?? Risks of procedural sedation Risks and possible side effects include: ??? Headache ??? Nausea and vomiting ??? Unpleasant memory of the procedure ??? Lowered rate of breathing ??? Changes in heart rate and blood pressure (rare) ??? Inhalation of stomach contents into your lungs (rare) Side effects will likely go away shortly after the procedure. Your healthcare team will watch your heart rate and breathing during and after your sedation. This is to help prevent problems. Your own risks may vary. They can be based on your age and your overall health. They also depend onthe type of sedation you are given. Talk with your healthcare provider about the risks that apply most to you. ?? Getting ready for procedural sedation Talk with your healthcare provider about how to get ready for your procedure. Tell them about all the medicines you take. This includes bcoe-znr-opukxyo medicines, such as ibuprofen. It also includesvitamins, herbs, and other supplements. You may need to stop taking some medicines before the procedure, such as blood thinners and aspirin. If you smoke, you should stop. This is to lessen the chance of a lung problem. Talk with your healthcare provider if you need help to stop smoking. Tell your healthcare provider if you: ??? Have had any problems in the past with sedation or anesthesia ??? Have had any recent changes in your health, such as an infection or fever ??? Are or think you could be Also: ??? Ask a family member or friend to take you home after the procedure. You can???t drive on the day you have sedation. ??? Follow any directions you are given for not eating or drinking beforeprocedure. ??? Don't make any important decisions, such as financial or legal, on the day after youhave sedation. ??? Follow all other instructions from your healthcare provider. ?? During your procedural sedation You may have your procedure in a hospital or a medical clinic. Sedation is done by a trained healthcare provider. In general, you can expect the following: ??? You will be given medicine through an IV line in your arm or hand. Or you may receive a shot. The medicine may also be given by mouth. Or you may inhale it through a mask. ??? If you have medicine through an IV, you may feel the effects very quickly. You will start to feel relaxed and drowsy. ??? During the procedure, your heart rate, breathing, and blood pressure will be closely watched. Your breathing and blood pressure may decrease a little. But you will likely not need help with your breathing. You may receive a little extra oxygen. This is done through a mask or some soft plastic prongs under your nose. ??? You will probably be awake the entire time. If you do fall asleep, you should be easy to wake up, if needed. You shouldfeel little or no pain. ??? When your procedure is over, the sedative medicine will be stopped. ?? After your procedural sedation You will begin to feel more awake and aware. But you will likely be drowsy for a while afterward. You will be closely watched as you become more alert. You may have a faint memory of the procedure. Or you may not remember it at all. You should be able to return home within 1 to 2 hours after your procedure. Plan to have someone stay with you for a few hours. Side effects, such as headache and nausea, may go away quickly. Tell your healthcare provider if they continue. Don???t drive or make any important decisions for at least 24 hours. Be sure to follow all after-care directions. ?? When to call your healthcare provider Have someone call your healthcare provider right away if any of the following occur: ??? Drowsinessthat gets worse ??? Weakness or dizziness that gets worse ??? Repeated vomiting ??? Severe or ongoing pain from the procedure, not relieved by the pain medicine ??? Fever of 100.4?? F (38??C) or higher, or as directed by your healthcare provider ??? New rash ?? Call 911 Have someone call 911 if any of the following occur: ??? Shortness of breath ??? Chest pain ??? Loss of consciousness or you can't be awakened ?? Last Reviewed Date: 2022 ?? [employer]. All rights reserved. This information is not intended as a substitute for professional medical care. Always follow your healthcare professional's instructions. ?? * Dante Pereira RN: PERFORM Event Display: Patient Education Leaflets Authored Date: [id number] Bleeding or Hematoma After Cardiac Catheterization ?? [id number] Bleeding or Hematoma After Cardiac Catheterization You recently had cardiac catheterization. A catheter was put into your body through a puncture of an artery in your groin or arm. You now have bleeding from this site. When bleeding occurs, it may drip or spurt from the site. Or it may collect in a lump (hematoma) under the skin. This often requires urgent evaluation in an emergency room. First put direct pressure on the site and call 911 or havesomeone take you to the emergency room. In the emergency room, more pressure will be put on the site to stop bleeding. You may be sent home if the bleeding can be controlled and you are feeling well enough. To prevent repeat bleeding, take some precautions at home. If the bleeding starts again, follow the advice below. Home care For the next 48 hours: ??? Don't do any strenuous activity. ??? Don't climb any stairs if possible ??? Don't lift anythinggreater than 5 pounds. ??? If the puncture site is in your arm or wrist, don't lie on that arm. ???If your puncture site is in the groin, don't??strain at bowel movements. ??? Don't scrub the site when bathing. It's fine to get it wet after your healthcare provider says it's OK, but don't scrub itor massage it. Don't take a tub bath for 3 days after the procedure. ??? Don't drive for the next 48 hours If bleeding happens again, call 911. Take the following steps to stop the bleeding until help arrives: ??? Lie on your back. ??? Place a clean cloth or gauze pad over the puncture site. Then hold firm pressure right on the site. Or have someone else apply firm pressure using the??gauze pad or??washcloth. ??? Keep your arm straight and raised above the level of your heart if the site is in your arm or wrist. If the site is in your groin, have someone else hold pressure on the site. ??? Don't press too hard! If you press too hard, your leg and foot (or arm and hand) will not get blood flow and??the skin under your toenails or fingernails may turn white. The skin should look pink, like the toen ails on your other foot. When you (or someone) presses on the toenail it will turn white, but when you stop pressing on the nail it will turn pink again. This is called capillary refill. If there is someone with you, they can check it. ??? If your toes, foot, or leg start feeling numb, tingly, orcold, ease up on the pressure, you are probably pressing too hard. ??? As soon as emergency care arrives, they will take over your care. ?? Follow-up care Follow up with your healthcare provider, or as advised. Ask your healthcare provider for a contact number to call. ?? Call 911 Call 911 if any of these occur: ??? Chest pain or pressure ??? Any bleeding from the site ??? Feeling weak or faint ??? Trouble breathing ??? Lump (hematoma) is??quickly getting larger ??? Coolness, numbness, tingling, or skin color changes in the leg or arm with the puncture site ?? When to seek medical advice Call your healthcare provider right away??if any of these occur: ??? Increased pain, redness, swelling, or drainage from the puncture site ??? Nausea or vomiting ??? Fever of 100.4??F (38??C) or higher, or as directed by your provider ?? Last Reviewed Date: 2021 ?? 2103-3121 The [employer]. All rights reserved. This information is not intended as a substitute for professional medical care. Always follow your healthcare professional's instructions. ?? Patient Care team information Care Team Personnel Name: Jen Duran Position: S RN Member Role: Primary Care Nurse Name: Ang Dalal DO Position: S Physician (General Medicine) Member Role: PCP Address: Address: [address] [place] [address] [address] [place] [address]- Name: Jen Johnson Position: S RN Member Role: Primary Care Nurse Care Team Related Persons Name: EDVIN BARROSO Address: [address] [place] [address]
--- OUTSIDE RECORDS SUMMARY | 2023-12-08 06:10 | XMS_ITS | Continuity of Care Document ---
Author Name Unknown Organization [facility] Address [address] [place] [address]- Care Team Providers Care General Supervisor Name Role Phone Ang Dalal DO Primary Care Physician Encounter [facility] [place] Date(s): 01/12/20 - 03/01/20 [facility] [address] [place] [address]- [facility] Attending Physician: Not on Staff, Attending MD [...]
--- OUTSIDE RECORDS SUMMARY | 2023-12-08 06:10 | XMS_ITS | Continuity of Care Document ---
Author Name Unknown Organization [facility] Address [address] [place] [address]- Care Team Providers Care Primary Care Provider Name Role Phone Ang Dalal DO Primary Care Physician Encounter [facility] [place] Date(s): 12/05/21 - 01/04/22 [facility] [address] [place] [address]- Attending Physician: Caitlin Davila Admitting Physician: Caitlin Davila Referring Physician: Caitlin Davila Allergies, Adverse Reactions, Alerts Substance Reaction Severity [...]
--- OUTSIDE RECORDS SUMMARY | 2023-12-08 06:10 | XMS_ITS | Continuity of Care Document ---
Author Name Unknown Organization [facility] Address [address] [place] [address]- Care Team Providers Care Starch Cooker Name Role Phone Ang Dalal DO Primary Care Physician Encounter [facility] [place] Date(s): 08/31/20 - 11/10/20 [facility] [address] [place] [address]- Attending Physician: Gerber Chinchilla MD Admitting Physician: [...]
--- OUTSIDE RECORDS SUMMARY | 2023-12-08 06:10 | XMS_ITS | Continuity of Care Document ---
Author Name Unknown Organization [facility] Address [address] [place] [address]- Care Team Providers Care Well Service Pump Equipment Operator Name Role Phone Ang Dalal DO Primary Care Physician Encounter [facility] [place] [facility] [id number] Date(s): 09/11/22 - 10/11/22 [facility] [address] [place] [address]- Attending Physician: Caitlin Davila Admitting Physician: Caitlin Davila Referring Physician: AdmtrCaitlin Allergies, Adverse Reactions, Alerts Substance Reaction Severity [...] Maintenance, 12/26/17 15:34:28, Route to Pharmacy Electronically, [id number], [facility] [address] Start Date: 12/26/17 Stop Date: 01/23/18 Status: Ordered pantoprazole 20 mg oral delayed [...] on: 12/23/17 Sex Patient Care team information Care Team Personnel Name: Jen Duran Position: S RN Member Role: Primary Care Nurse Name: Ang Dalal DO Position: S Physician (General Medicine) Member Role: PCP Address: Address: [address] [place] [address] [address] [place] [address]- Name: Jen Johnson Position: S RN Member Role: Primary Care Nurse Care Team Related Persons Name: LEANNE BARROSOLANDA Address: [address] [place] [address]
--- OUTSIDE RECORDS SUMMARY | 2023-12-08 06:10 | XMS_ITS | Continuity of Care Document ---
Author Name Unknown Organization [facility] Address [address] [place] [address]- Care Team Providers Care Director State Pharmacy Name Role Phone Ang Dalal DO Primary Care Physician Encounter [facility] [place] Date(s): 06/06/20 - 07/06/20 [facility] [address] [place] [address]- [facility] Attending Physician: Caitlin Davila Admitting Physician: Caitlin [...]
--- OUTSIDE RECORDS SUMMARY | 2023-12-08 06:10 | XMS_ITS | Continuity of Care Document ---
Author Name Unknown Organization [facility] Address [address] [place] [address]- Care Team Providers Care Dust Box Tender Name Role Phone Ang Dalal DO Primary Care Physician Encounter [facility] Date(s): 01/31/20 - 02/10/20 [facility] [address] [place] [address]- [facility] Attending Physician: Caitlin Davila Admitting Physician: Caitlin [...]
--- OUTSIDE RECORDS SUMMARY | 2023-12-08 06:10 | XMS_ITS | Continuity of Care Document ---
Author Name Unknown Organization [facility] Address [address] [place] [address]- Care Team Providers Care Microsoft Net Developer Name Role Phone Ang Dalal DO Primary Care Physician Encounter [facility] [place] Date(s): 03/01/21 - 05/12/21 [facility] [address] [place] [address]- Attending Physician: Gerber Chinchilla MD Admitting Physician: [...]
--- OUTSIDE RECORDS SUMMARY | 2023-12-08 06:10 | XMS_ITS | Continuity of Care Document ---
Author Name Unknown Organization [facility] Address [address] [place] [address]- Care Team Providers Care C Winforms Developer Name Role Phone Ang Dalal DO Primary Care Physician [place] [facility] [place]s): 12/13/20 - 02/09/21 [facility] [address] [place] [address]- Attending Physician: Gerber Chinchilla MD Admitting Physician: [...]
--- NOTE | 2023-12-08 06:11 | PC.NURSE ---
Verified with Radha from pharmacy correct preop Vanco dose of 1500mg IV.
--- OUTSIDE RECORDS SUMMARY | 2023-12-08 06:11 | XMS_ITS | Continuity of Care Document ---
Author Name Unknown Organization [facility] Address [address] [place] [address]- Care Team Providers Care Puff Iron Operator Name Role Phone Ang Dalal DO Primary Care Physician En[place] [facility] [place](s): 01/01/21 - 04/06/21 [facility] [address] [place] [address]- Attending Physician: Gerber Chinchilla MD Admitting Physician: [...]
--- OUTSIDE RECORDS SUMMARY | 2023-12-08 06:11 | XMS_ITS | Continuity of Care Document ---
Author Name Unknown Organization [facility] Address [address] [place] [address]- Care Team Providers Care Supervisor Home Restoration Service Name Role Phone Ang Dalal DO Primary Care Physician Encounter [facility] [place] Date(s): 07/25/21 - 08/24/21 [facility] [address] [place] [address]- Attending Physician: Caitlin Davila Admitting Physician: Caitlin [...]
--- OUTSIDE RECORDS SUMMARY | 2023-12-08 06:11 | XMS_ITS | Continuity of Care Document ---
Author Name Unknown Organization [facility] Address [address] [place] [address]- Care Team Providers Care Assistant Commissioner Name Role Phone Ang Dalal DO Primary Care Physician Encounter [facility] [place] Date(s): 10/11/20 - 11/10/20 [facility] [address] [place] [address]- Attending Physician: Caitlin Davila Admitting Physician: Caitlin [...]
--- OUTSIDE RECORDS SUMMARY | 2023-12-08 06:11 | XMS_ITS | Continuity of Care Document ---
Author Name Unknown Organization [facility] Address [address] [place] [address]- Care Team Providers Care Reacher Name Role Phone Ang Dalal DO Primary Care Physician [id number] - 08[facility] [address] [place] [address]- Attending Physician: Gerber Chinchilla MD Admitting Physician: [...]
[2023-12-08 06:27] LABS: Glucose, Whole Blood 143 mg/dL (60-115)
[2023-12-08] MEDS: vancomycin HCL 1,500 MG in 0.9 % Sodium Chloride 500 ML 333.33 MG IV ×2 (06:52→19:35)
[2023-12-08] MEDS: Gabapentin 300 MG CAPSULE PO (06:53)
[2023-12-08] MEDS: methocarbamoL 750 MG TABLET PO (06:53)
[2023-12-08] MEDS: Lactated Ringers 1,000 ML 100 ML IVCONT (06:53)
--- NOTE | 2023-12-08 07:07 | MHC.SHP ---
Pre-Procedural Eval Section A - 24 Hr Update-Section A only Date of Service: 12/08/23 The patient is an INPATIENT: No Changes since office visit: No Cold of Flu in the past 2 weeks, No New Medical Problems, No Changes in Medication and No Patient answered all questions The patient has been examined within 24 hours of the surgical procedure. The History & Physical has been completed within 30 days and I have reviewed it.: No Section B - Complete if H&P > 30 days Chief Complaint: Lumbar Fusion Surgery Allergies: Allergies Allergy/AdvReac Type Severity Reaction Status Date / Time Penicillins Allergy Unknown Swelling Verified 12/08/23 06:11 Review of Systems Sugical H&P ROS: Negative: Constitution, Cardiovascular, Respiratory, Neurological, Psychiatric, Hem-Onc, Allergic/Immunologic, Gastrointestinal, Genitourinary, Musculoskeletal, Integumentary, Endocrine and Eyes/Ears/Nose/Throat Exam Surgical H&P Exam: Not Evaluated: HEENT, Not Evaluated: Heart, Not Evaluated: Lungs, Not Evaluated: Extremities, Not Evaluated: Abdomen, Not Evaluated: Skin and Not Evaluated: Neurological Plan Diagnosis/Plan: Unchanged L4-5 Oblique lumbar interbody fusion Time Spent With Patient Time: Total time managing care of this patient today __5__ minutes.
--- NOTE | 2023-12-08 09:31 | W.PM.OPN ---
Operative Note Operative Note Date of Service: 12/08/23 Narrative: Preop Diagnosis: 1.) Lumbar degenerative disc disease; back pain Procedure: L4-5 discectomy, arthrodesis and implantation cage through an anterolateral, retroperitoneal approach; posterior instrumented fusion L4-5; allograft Consent Informed Consent was obtained for this operation. I have explained the nature, purpose and benefits of the operation. I have discussed the risks and benefit of the operation including possible complications or adverse events with patient/family. Alternative(s) were discussed with the patient with their relative benefits and risks as well as the consequences of not accepting the operation were included in obtaining consent. Surgeon: MALGORZATA CHE MD, PHD Procedure Assisted By: mitzy Lopez Description of Procedure This 63-year-old male suffering from intractable low back pain. An MRI shows severe lumbar degenerative disc disease L4-5. The patient was offered an oblique lumbar interbody fusion L4-5. The procedure complications were explained. The patient was consented. The patient was brought to the operating room and endotracheally intubated. The patient was turned in a lateral position with the left side up. Prep and drape was done followed by timeout. A small incision was made in the left lower abdominal quadrant. The muscle fascia was opened after which the 3 muscle layer was split to enter the retroperitoneal space. Dilators were docked in the anterior one third of the L4-5 disc space followed by a retractor. The retractor was opened. The L4-5 disc space was exposed. An annulotomy was done after which an elevator Sadler was used to release the disc material from its endplates and to perforate the contralateral side. A partial discectomy was done. An 8 mm height trial implant was inserted. The discectomy was completed. The endplates were prepared. An 8 mm x 50 mm with 0 degree lordosis 4 web cage filled with allograft was inserted into the disc space under fluoroscopic guidance. This resulted in sabianist of the L4-5 disc height. The retractor was removed. Hemostasis was done. The incision was closed in 2 layers. Steri-Strips used toapproximate incision. An OpSite with Tegaderm was used to cover the incision. This marked first part of the procedure. The patient was turned prone on the Basil spine table. 2C arms were installed for fluoroscopy. Prep and drape was done followed by a second timeout. 2 paramedian incisions were made lateral from the L4-5 pedicles. The muscle fascia was opened after which the muscle layer was split bluntly to expose the posterolateral gutter. The following steps were taken. A pediguard tap was used to create a transpedicular trajectory into the vertebral body. A K wire was placed. A specially designed instrument was advanced over the K wire to decorticate the posterolateral gutter in preparation for the posterolateral fusion. A pedicle screw was advanced over the K wire and the K wire was removed. The steps were done for the bilateral L4 and L5 pedicles. A total of 4 screws were placed with a diameter of 6.5 x 45 mm. Pedicle screws were connected with 50 mm airam bilaterally and locked down with locking caps. The extension towers were removed. The posterolateral gutter was filled with allograft to complete the posterolateral [] fusion Hemostasis was done and the incision was closed in 2 layers. Steri-Strips were used to approximate the incision. An OpSite were taken and was used to cover the incision. All sponge and needle counts were correct. Patient was extubated and transferred in stable is to recovery room. Anesthesia: General Estimated Blood Loss (ml): 30 Duration of Surgery: 90 minutes Complications: None Postoperative Plan: Admit to inpatient for observation
[2023-12-08] MEDS: fentaNYL citrate/PF 100 MCG/2 ML VIAL 50 MCG IVPUSH (10:15)
[2023-12-08] MEDS: HYDROmorphone HCl 0.5 MG/0.5 ML SYRINGE IVPUSH ×2 (10:30→10:55)
[2023-12-08] MEDS: 0.9 % Sodium Chloride 1,000 ML 75 ML IVCONT (11:29)
[2023-12-08] MEDS: Ketorolac Tromethamine 15 MG/ML VIAL IVPUSH ×3 (11:36→21:55)
[2023-12-08] MEDS: Acetaminophen 1,000 MG/100 ML PIGGYBACK 400 MG IV ×3 (11:40→21:56)
--- NOTE | 2023-12-08 12:10 | PHA.MEDREC ---
Pharmacy Consult ? Medication Reconciliation Pharmacy has reviewed the medication reconciliation. Spoke to patient to confirm they were on colchicine as there was no claim history. PAtient is on Jardiance 10 mg, he told me that 25 mg was too much for him.
[2023-12-08 12:16] LABS: Glucose, Whole Blood 192 mg/dL (60-115)
[2023-12-08] MEDS: HYDROmorphone HCl 1 MG/ML SYRINGE IVPUSH ×2 (12:46→17:02)
--- NOTE | 2023-12-08 16:24 | MHC.CM.PN ---
PT REPORTS HE LIVES AT HOME WITH HIS AND IS INDEPENDENT WITH CARE HE HAS NO DME AND NO HOME SERVICES PT SAYS HE HAS A HCP NAMING HIS HIS AGENT, COPY REQUESTED PCP: EZEKIEL SAXENA IMM DELIVERED DCP: HOME NO SERVICES TO TRANSPORT
[2023-12-08 16:38] LABS: Glucose, Whole Blood 218 mg/dL (60-115)
[2023-12-08] MEDS: Insulin Lispro 100 UNIT/ML 3 ML VIAL SUBCUT ×2 (17:19→20:22)
[2023-12-08] MEDS: oxyCODONE HCl Immed Release 5 MG TABLET 10 MG PO (20:22)
[2023-12-08] MEDS: Docusate Sodium 100 MG CAPSULE PO (20:22)
[2023-12-08 20:32] LABS: Glucose, Whole Blood 219 mg/dL (60-115)
[2023-12-09] MEDS: HYDROmorphone HCl 1 MG/ML SYRINGE IVPUSH ×4 (00:29→15:36)
[2023-12-09] MEDS: 0.9 % Sodium Chloride 1,000 ML 75 ML IVCONT (01:32)
[2023-12-09 03:03] VITALS: BP 114/55; PULSE 65; RESP 16; TEMP 36.6; O2SAT 95
[2023-12-09] MEDS: Ketorolac Tromethamine 15 MG/ML VIAL IVPUSH ×2 (04:00→10:16)
[2023-12-09] MEDS: Acetaminophen 1,000 MG/100 ML PIGGYBACK 400 MG IV ×2 (04:04→10:20)
[2023-12-09 07:04] VITALS: BP 116/55; PULSE 67; RESP 16; TEMP 36.2; O2SAT 96
[2023-12-09 07:15] VITALS: BP 122/66; PULSE 77; RESP 16; TEMP 36.2; O2SAT 94
[2023-12-09 07:21] LABS: Glucose, Whole Blood 143 mg/dL (60-115)
[2023-12-09 08:10] VITALS: BP 122/66; PULSE 77; O2SAT 94
--- NOTE | 2023-12-09 08:32 | HO.POSTANES ---
Post Anesthesia Evaluation Post Anesthesia Evaluation Date of Service: 12/09/23 Vital Signs: Vital Signs Temp Pulse Resp BP Pulse Ox O2 Del Method O2 Flow Rate 12/09/23 07:15 97.2 F 77 16 122/66 94 CPAP 2.0 12/09/23 07:04 97.2 F 67 16 116/55 L 96 Room Air 12/09/23 03:03 97.9 F 65 16 114/55 L 95 Room Air Anesthesia: General Endotracheal-GETA Mental Status: Awake Pain Control: Satisfactory (difficulty controlling pain) Nausea/Vomiting: None Hydration: Adequate Anesthesia-Related Issues: No Anes. Related Issues
[2023-12-09] MEDS: allopurinoL 300 MG TABLET PO (08:59)
[2023-12-09] MEDS: Docusate Sodium 100 MG CAPSULE PO (08:59)
[2023-12-09] MEDS: Empagliflozin 10 MG TABLET PO (08:59)
--- NOTE | 2023-12-09 09:46 | MHC.CM.PN ---
pt is independent lives with will not need servies nohemy no servirs
--- NOTE | 2023-12-09 10:04 | HO.NEURO.PN ---
Neurosurgery Operative Note Date of Service: 12/09/23 Narrative: Postop day 1. L4-5 minimally invasive oblique lumbar interbody fusion Patient overall doing well, is complaining of some back pain. He had to be straight cath last night for 700 cc, but then subsequently was able to void on his own without any issues. His appetite is poor but he has tolerating a diet. No nausea vomiting, chest pain or shortness of breath. Afebrile, vital signs stable Physical exam: Patient is awake alert oriented no acute distress, he has full strength of bilateral lower extremities with normal and say sensation, left lower quadrant incision is clean and dry, abdomen soft nondistended nontender, back dressings have a small amount of staining but no signs of hematoma. Postop day 1. L4-5 minimally invasive lumbar fusion, overall doing okay, he has been up moving around but has not seen PT yet. He had to be straight cath once but is now voiding on his own. He has tolerating a diet. The plan will be to get him up moving around her hopefully discharge him home later today. Patient seen at bedside with Dr. Dennis.
--- NOTE | 2023-12-09 10:06 | P.DS_ITS ---
DS: Providers Provider Date of Service: 12/08/23 Date of admission: 12/08/23 06:07 Date of discharge: 12/09/23 Primary care physician: Ang Dalal DO, MD Admitting clinician: Tang Dennis DS: Diagnosis Discharge Diagnosis (1) Lumbar degenerative disc disease: Status: Acute (2) Scoliosis of lumbar region due to degenerative disease of spine in adult: Status: Acute DS: Summary Time Attestation Discharge coordination time: Less than 30 minutes Quality: Safe Use of Opioids Does Pt have an Active Cancer Diagnosis on the Problem List?: No Quality: Stroke Does the patient have a stroke diagnosis?: No Physical Exam Vital Signs: Vital Signs: Last Vital Signs Temp 97.2 F 12/09/23 07:15 Pulse 77 12/09/23 08:10 Resp 16 12/09/23 07:15 BP 122/66 12/09/23 08:10 Pulse Ox 94 12/09/23 08:10 O2 Del Method CPAP 12/09/23 07:15 O2 Flow Rate 2.0 12/09/23 07:15 BMI result Body Mass Index 28.5 DS: Data Data Completed and Pending Labs on day of discharge: Laboratory Results - last 24 hr 12/08/23 12/08/23 12/08/23 12:11 16:16 20:17 POC Glucose 192 H 218 H 219 H 12/09/23 07:07 POC Glucose 143 H Discharge Plan Discharge Anticipated Discharge Date/Time: 12/09/23 14:11 Patient Disposition: Home, Self-Care Discharge Diagnosis: Lumbar degenerative disc disease Referrals: Ang Dalal DO, MD [Primary Care Provider] - 1 Week Discharge Medications: New docusate sodium [Colace] 100 mg capsule 100 mg PO BID Qty: 20 0RF oxycodone 5 mg tablet See Rx Instructions .ROUTE .COMPLEX PRN (Reason: pain) Qty: 40 0RF Rx Instructions: 1-2 tabs po q4 hours prn pain; Partial Fill upon patient request. Continued allopurinol 300 mg tablet 300 mg PO DAILY diazepam 5 mg tablet 5 mg PO DAILY PRN (Reason: Anxiety) Jardiance 10 mg tablet 10 mg PO DAILY omeprazole 20 mg capsule,delayed release(DR/EC) 20 mg PO QAM PRN (Reason: Gastric Reflux) acetaminophen 325 mg Tablet 650 mg PO DAILY PRN (Reason: Pain) ibuprofen [Advil] 200 mg Tablet 400 mg PO Q8H PRN (Reason: Pain) colchicine 0.6 mg Tablet 0.6 mg PO DAILY PRN (Reason: Pain) rizatriptan 10 mg tablet 10 mg PO QD-BID PRN (Reason: Migraine Headache) Opzelura 1.5 % cream 1 appl topical BID Discharge Orders: Discharge Order (Routine); Ordered 12/09/23 Ordered By: Anthony Heck Diet: Advance to usual diet Activity on Discharge: As tolerated Stand Alone Forms: Patient Portal Discharge page Activity Restrictions/Additional Instructions: After your spinal surgery we ask you to observe the following res trictions/guidelines: Activity: It is normal to feel some discomfort as you increase your activity, but that will improve with time. We ask you avoid heavy lifting or acitivities that cause pain. As a general rule, 8lbs is a safe limit for lifting right after surgery. Walk as much as you feel comfortable but not to exhaustion. You will feel extra tired the first few days after surgery. Stay well hydrated. It is OK to walk up and down stairs You may return to driving when you are off narcotics (such as vicodin, oxycodone, dilaudid, etc), and you are back to normal functional capacity. If you have any concerns please check with office before driving. Return to work is specific to each patient and each surgery, so please speak with your doctor/PA at first follow up. Please bring paperwork such as FMLA at that time if you need it filled out. Medications: For optimum pain control, it is best to start with a combination of 500 mg of Tylenol every 4 hours with 600 mg of Motrin every 8 hours, and use narcotics as needed in between for breakthrough pain. We will give you a short supply of narcotics after surgery (usually one weeks worth). If you need more please call the office but do not use more than prescribed. You will need to give our office 48 hours notice if you need narcotics refilled and we do not fill narcotics on weekends or evenings. If you are on a narcotic, it is a good idea to take a stool softener such as colace or senna to avoid constipation If you take blood thinner such as aspirin, Plavix, Coumadin, Effient, Eliquis etc for conditions such as Afib, DVT, Pulmonary embolus, coronary disease, stents etc please speak with your surgeon about specific details as to when you can resume these medications. You can resume NSAIDs on post op day 1 (eg: Motrin, Naproxen, etc). Follow up: Please call the office, , after surgery to arrange a 3 week follow up for wound check. Wound Care: You may remove your dressing on the first day after surgery. ?You may ?leave open to air. Please do not remove the steri strips underneath. they will fall off on their own in one week. IT IS NORMAL FOR THE WOUND TO OOZE OR BE BLOODY FOR A FEW DAYS AFTER SURGERY. ?IF THIS HAPPENS JUST PLACE NEW DRESSING OVER IT TO AVOID STAINING CLOTHES. You may shower on post op day # 1 We ask that you do not let the water soak the wound. If it does get wet, just towel dry lightly. Please do not scrub your incision or place any type of chemical/ointment on the wound. No tub baths, pools or jacuzzis for one month. If you have any leaking or redness from your wound, or fevers, please call office Care Plan Goals: Discharge home Health Concerns: None Plan of Treatment: Discharge home Assessment: Stable
--- NOTE | 2023-12-09 10:28 | MHC.CM.PN ---
pt dcd home no skilled services
[2023-12-09 11:24] LABS: Glucose, Whole Blood 164 mg/dL (60-115)
[2023-12-09] MEDS: Insulin Lispro 100 UNIT/ML 3 ML VIAL SUBCUT (12:00)
== END 2023-12-09 16:05 | disposition home or self-care (01) | DRG 460 ==
LOC: HO.SSSA 06:08 → HO.S3 10:14
PROVIDERS: Nurse Practitioner; Admitting Provider Neurological Surgery; PCP Internal Medicine; Visit Provider Neurological Surgery
PROC: 0SG00A0 Fusion of Lumbar Vertebral Joint with Interbody Fusion Device, Anterior Approach, Anterior Column, Open Approach (ICD-10-PCS; principal; 2023-12-08 07:30)
DX: M51.36 Other intervertebral disc degeneration, lumbar region (principal); E11.9 Type 2 diabetes mellitus without complications; Z79.84 Long term (current) use of oral hypoglycemic drugs; Z79.899 Other long term (current) drug therapy
CPT/HCPCS: 36415; 80048; 82947; 83036; 85027; 86850; 86900; 86901; 93005; 97161; 99024; C1713; J0131; J1100; J1170; J1885; J2250; J2405; J2704; J3010; J3371; L8699

== ENCOUNTER → 2023-12-08 06:07 | Outpatient (BNV) | payer MEDICARE, BC, SELFPAY | PROVIDERS: Admitting Provider Neurological Surgery; PCP Internal Medicine; Visit Provider Neurological Surgery | DX: M51.36 Other intervertebral disc degeneration, lumbar region (principal); M41.56 Other secondary scoliosis, lumbar region; M54.9 Dorsalgia, unspecified | CPT/HCPCS: 20930; 22558; 22612; 22840; 22853; 99499 ==

== ENCOUNTER 2023-12-30 14:49 | Outpatient (AMB) | payer MEDICARE, BC, SELFPAY ==
--- NOTE | 2023-12-30 14:57 | HO.SPINEOV ---
Intake Intake Visit Reasons: 1st post-op visit. Intake Note: Mr. Mercado is here today for his 1st post-op visit. Campaign Analyst Required: No Allergies Penicillins Allergy (Unknown, Verified 12/08/23 06:11) Swelling Assessment & Plan Assessment & Plan (1) S/P lumbar fusion: Code(s): Z98.1 - Arthrodesis status Plan Procedure: L4-5 JEROME Cheek comes in today for his 1st postoperative visit. He reports he has been in significant pain for the past week. He had some resolution of pain in the 1st couple of weeks post surgery but states it has worsened recently. He describes his pain as a shooting/burning pain that shoots into his left groin. His pain is now to the point where he is having trouble sleeping and is waking up at night. He states he has side effects from all medications, and therefore does not like taking medication. He has not been taking the prescribed oxycodone because he feels like it does not do anything. He also has only been taking 1-2 Tylenol or ibuprofen per day maximum. We discussed how this is a lackluster medication regimen. I will be switching him to Dilaudid 2 mg Q8h. He was also strongly advised to start taking 1000 mg of Tylenol 3 times a day alongside is Dilaudid. The patient has a burning type pain shooting into his left groin. Rest of his sensation is normal. Patient is able to ambulate with the assistance of a cane, rises from a seated position with some difficulty. Anterior and posterior incision sites are closed, well healing, with no signs of drainage. I ordered the patient 2 mg Dilaudid to be taken Q8h. I also ordered him a set of lumbar x-rays to evaluate instrumentation. We will follow-up with the patient in 6 weeks for his 2nd postoperative visit. At that time we will get another set of x-rays to review with the patient. I evaluated the patient alongside Dr. Dennis who is agreeable to this plan. His pain is likely due to the approach of surgery. Rafael Dennis MD,PhD [facility] Orders: Orders XR lumbar spine 4V min Today Medications: New hydromorphone Partial Fill upon patient request. 2 mg PO Q8H 30 tabs 0RF severe pain Discontinued oxycodone Discontinued Reason: Doctor's Order 1-2 tabs po q6-8 hours prn severe pain; Partial Fill upon patient request. 30 tabs 0RF pain Coding Level of Care Code Global (71611) Diagnoses S/P lumbar fusion Z98.1
== END 2023-12-30 15:46 | disposition home or self-care (01) ==
PROVIDERS: PCP Internal Medicine; Visit Provider Physician Assistant
DX: Z98.1 Arthrodesis status (principal)
CPT/HCPCS: 99024

== ENCOUNTER 2023-12-30 14:49 | Outpatient (REF) | payer MEDICARE, BC, SELFPAY ==
--- NOTE | ~2023-12-30 | XR_ITS ---
EXAMINATION: XR LUMBOSACRAL SPINE WITH FLEXION AND EXTENSION CLINICAL INFORMATION: Pain COMPARISON: Lumbar spine 08/29/2023 TECHNIQUE: Standing AP, lateral flexion and extension, and lateral views of the lumbar spine FINDINGS: The visualized lumbar vertebral bodies are intact with normal alignment. Bilateral 12th ribs are rudimentary. There is sacralization of L5. Interval placement of intrapedicular screws and adjoining fusion rods and disc spacer at L3-L4. No evidence of hardware complication. There is disc space narrowing at L3-L4 and L5-S1. No change in mild retrolisthesis of L5 with respect to S1. This is unchanged on flexion and extension views Alignment of the lumbar spine is unchanged on the lateral flexion view. 0.7 cm calcification is seen overlapping the left lower renal lesion, as previously seen. XR/XR lumbar spine 4V min IMPRESSION: 1. Postsurgical changes at L3-L4 without evidence of hardware complication. 2. No change in mild retrolisthesis of L5 with respect to S1. No change in alignment on flexion and extension views.
== END 2023-12-30 14:50 | disposition home or self-care (01) ==
LOC: HO.HOSX 14:49
PROVIDERS: PCP Internal Medicine; Visit Provider Physician Assistant
DX: Z47.89 Encounter for other orthopedic aftercare (principal); Z98.1 Arthrodesis status
CPT/HCPCS: 72110; 99212

== ENCOUNTER 2024-02-11 14:50 | Outpatient (AMB) | payer MEDICARE, BC, SELFPAY ==
--- NOTE | 2024-02-11 15:23 | HO.SPINEOV ---
Intake Intake Visit Reasons: 2nd post op Allergies Penicillins Allergy (Unknown, Verified 12/08/23 06:11) Swelling Assessment & Plan Assessment & Plan (1) S/P lumbar fusion: Code(s): Z98.1 - Arthrodesis status Plan Ham was seen today in clinic for his final postoperative visit. His lumbar spine x-rays look fantastic, and showed no change when compared to previous imaging. His instrumentation looks great. I reviewed these images with him and his . He reports his symptoms have very much so improved and he is back to completing his regular ADLs. He did state that he is still having quite a bit of pain from his shingles, but aside from that everything else is fine. There is no need for continued routine follow-up with Ham. As discussed, he will be discharged from our practice. Rafael Dennis MD,PhD [facility] Orders: Orders XR lumbar spine 4V min Today Z98.1 - Arthrodesis status Coding Level of Care Code Global (01642) Diagnoses S/P lumbar fusion Z98.1
== END 2024-02-11 15:26 | disposition home or self-care (01) ==
PROVIDERS: PCP Internal Medicine; Visit Provider Physician Assistant
DX: Z98.1 Arthrodesis status (principal)
CPT/HCPCS: 99024

== ENCOUNTER 2024-02-11 14:50 | Outpatient (REF) | payer MEDICARE, BC, SELFPAY ==
--- NOTE | ~2024-02-11 | XR_ITS ---
EXAMINATION: XR LUMBOSACRAL SPINE CLINICAL INFORMATION: Reason for Exam Z98.1 - Arthrodesis status COMPARISON: Lumbar spine radiographs 12/30/2023 TECHNIQUE: 4 views of the lumbar spine FINDINGS: Transitional anatomy. There are 4 nonrib-bearing lumbar-type vertebral bodies with sacralization of L5 and rudimentary L5-S1 disc space. There are hypoplastic T12 ribs. Status post L3-L4 posterior spinal fusion with interbody disc spacer. No evidence of hardware fracture or complication. Vertebral body heights are maintained. Alignment is maintained. No instability on flexion extension views. Moderate multilevel degenerative disc disease. Paravertebral soft tissues are unremarkable. XR/XR lumbar spine 4V min IMPRESSION: 1. Transitional anatomy. There are 4 nonrib-bearing lumbar-type vertebral bodies with sacralization of L5 and rudimentary L5-S1 disc space. 2. Status post L3-L4 posterior spinal fusion with interbody disc spacer. No evidence of hardware fracture or complication. 3. Moderate multilevel degenerative disc disease. 4. No instability on flexion extension views.
== END 2024-02-11 14:51 | disposition home or self-care (01) ==
LOC: HO.HOSX 14:50
PROVIDERS: PCP Internal Medicine; Visit Provider Physician Assistant
DX: Z98.1 Arthrodesis status (principal); M51.36 Other intervertebral disc degeneration, lumbar region
CPT/HCPCS: 72110; 99212